=== PATIENT | female | born 1975 | race Asian ===

== ENCOUNTER 2021-04-30 04:16 | Emergency (ER) | payer BC ==
[~2021-04-30] VITALS: Ht 154.9 cm; Wt 56.2 kg
[~2021-04-30 04:16] MED LIST: ACET325; LORA1 PO; MULVITMINE; NAPR500 PO; ONDA4 PO; POTA10T; POTA10T PO; PRED10 PO; PRED20; PREN-16 PO; PROM25 PO; RANI150 PO; REPLIVA; RXLORA1 PO; SULTRIDS PO; ZOLP10
[2021-04-30] MEDS ORDERED: BENADRYL25 MG PO (05:34)
== END 2021-04-30 05:42 | disposition home or self-care (01) ==
LOC: ER 04:16
DX: L25.9 Unspecified contact dermatitis, unspecified cause (principal)
CPT/HCPCS: 99282; A9270; J1100

== ENCOUNTER 2022-04-06 02:30 | Emergency (ER) | payer BC ==
[~2022-04-06] VITALS: Ht 157.5 cm; Wt 49.9 kg
[~2022-04-06 02:30] MED LIST changes: +ALLEGRA ALLERGY60 MG PO; +BENADRYL25 MG PO
[2022-04-06] MEDS ORDERED: BENADRYL25 M1 PO (04:29)
[2022-04-06] MEDS ORDERED: Hydrocortiso453.6 G3 TOP (04:29)
== END 2022-04-06 04:50 | disposition home or self-care (01) ==
LOC: ER 02:30
DX: L25.9 Unspecified contact dermatitis, unspecified cause (principal); R60.0 Localized edema; Z79.899 Other long term (current) drug therapy
CPT/HCPCS: A9270; J1100

== ENCOUNTER 2022-06-29 20:50 | Emergency (ER) | payer BC ==
[~2022-06-29] VITALS: Ht 162.6 cm; Wt 57.6 kg
[~2022-06-29 20:50] MED LIST changes: +BENADRYL25 M1 PO; +Hydrocortiso453.6 G3 TOP
[2022-06-29 21:23] LABS: BASOPHILS ABSOLUTE AUTO 0.03 K/mm3 (0.00-0.23); BASOPHILS PERCENT AUTO 0 % (0-2); EOSINOPHILS ABSOLUTE AUTO 0.27 K/mm3 (0.00-0.68); EOSINOPHILS PERCENT AUTO 4 % (0-6); Hematocrit 29.6 % (33.0-51.0); Hemoglobin 8.4 g/dL (11.5-16.0); IMMATURE GRAN ABSOLUTE AUTO 0.02 K/mm3 (0.00-0.10); IMMATURE GRAN PERCENT AUTO 0 % (0-1); LYMPHOCYTES ABSOLUTE AUTO 1.19 K/mm3 (0.84-5.20); LYMPHOCYTES PERCENT AUTO 18 % (21-46); MONOCYTES ABSOLUTE AUTO 0.46 K/mm3 (0.16-1.47); MONOCYTES PERCENT AUTO 7 % (4-13); Mean Corpuscular HGB 17.8 pg (26.0-34.0); Mean Corpuscular HGB Conc 28.4 g/dL (31.5-36.5); Mean Corpuscular Volume 63 fL (80-100); Mean Platelet Volume 9.4 fL (9.1-12.4); NEUTROPHILS ABSOLUTE AUTO 4.74 K/mm3 (1.96-9.15); NEUTROPHILS PERCENT AUTO 71 % (41-73); Platelet Count 325 K/mm3 (150-400); RDW Coefficient Variation 18.3 % (11.7-14.2); RDW Standard Deviation 39.7 fL (35.1-46.3); Red Blood Cell Count 4.72 M/mm3 (3.80-5.20); White Blood Cell Count 6.71 K/mm3 (4.00-11.30)
[2022-06-29 21:45] LABS: Albumin, Blood 4.4 g/dL (3.4-5.0); Bilirubin, Total 0.4 mg/dL (0.1-1.0); Bun/Creatinine Ratio 14.3 (12.0-20.0); Creatinine, Blood 0.63 mg/dL (0.40-1.00); Globulin, Blood 4.3 g/dL (2.2-4.0); Potassium, Blood 3.1 mmol/L (3.5-5.5); Total Protein, Blood 8.7 g/dL (6.4-8.2)
[2022-06-29 21:55] LABS: Source, Urine Clean Catch
[2022-06-29 21:59] LABS: Bilirubin, Urine Neg (Neg); Blood, Urine 5+ (Neg); Glucose Qualitative, Urine Neg (Neg); Ketones, Urine Neg (Neg); Leukocyte Esterase, Urine 1+ (Neg); Nitrite, Urine Neg (Neg); Protein, Urine 1+ (Neg); Specific Gravity, Urine 1.005 (1.003-1.022); Urobilinogen, Urine NORM (Normal); pH, Urine 6.5 (5.0-8.0)
[2022-06-29 22:00] LABS: Appearance, Urine Hazy (Clear); Color, Urine Pale Yellow (P-Yellow)
[2022-06-29 22:03] LABS: Influenza A, PCR NEGATIVE (NEGATIVE); Influenza B, PCR NEGATIVE (NEGATIVE); Resp Syncytial Virus, PCR NEGATIVE (NEGATIVE); SARS-Cov-2 (COVID-19) PCR, MMC NEGATIVE (NEGATIVE)
[2022-06-29 22:10] LABS: Bacteria Rare /hpf; Red Blood Cells, Urine TNTC /hpf (0-2); Squamous Epithelial Cells Rare /hpf (Few); White Blood Cells, Urine 0-2 /hpf (0-5)
[2022-06-29] MEDS ORDERED: POTA10T PO (22:55)
== END 2022-06-29 23:26 | disposition home or self-care (01) ==
LOC: ER 20:50
PROVIDERS: Student in an Organized Health Care Education/Training Program
DX: D64.9 Anemia, unspecified (principal); E87.6 Hypokalemia; R53.83 Other fatigue; Z79.899 Other long term (current) drug therapy; Z20.822 Contact with and (suspected) exposure to COVID-19
CPT/HCPCS: 0241U; 36415; 80053; 81001; 81025; 85025; 93005; 93010; A9270; J7030

== ENCOUNTER 2025-03-22 18:23 | Observation (INO) | payer OTHER | END 2025-03-24 09:23 | disposition home or self-care (01) | LOC: ER 18:23 → ERHOLD 18:24 → SURS 21:50 | PROVIDERS: ADMIT Surgery | DX: S22.41XA Multiple fractures of ribs, right side, initial encounter for closed fracture (principal); R18.8 Other ascites; D50.9 Iron deficiency anemia, unspecified; V89.2XXA Person injured in unspecified motor-vehicle accident, traffic, initial encounter ==